=== PATIENT | male | born 1960 | race Caucasian/White ===

== ENCOUNTER 2022-09-06 08:14 | Emergency (ER) | payer OTHER ==
[2022-09-06] MEDS ORDERED: Nitroglycerin 0.4 MG Tab.SL SL ONE (08:47)
[2022-09-06 08:52] LABS: PTT,PARTIAL THROMBOPLSTIN TIME 24.6 SEC (22.0-34.0)
[2022-09-06 08:56] LABS: ANION GAP 12.3 mEq/L (7-13); CHLORIDE,CL 104 mmol/L (98-107); SODIUM,NA 140 mmol/L (136-145)
[2022-09-06 08:57] VITALS: BP 133/103; PULSE 60
[2022-09-06 08:59] LABS: ESTIMATED GFR 86 mL/min (>=60)
[2022-09-06 09:15] LABS: CORONAVIRUS COVID-19 NAA NEGATIVE (NEGATIVE); RESPIRATORY SYNCYTIAL VIR NAA NEGATIVE (NEGATIVE)
== END 2022-09-06 12:53 | disposition home or self-care (01) ==
LOC: DL.ED 08:14
DX: R07.9 Chest pain, unspecified (principal); D53.9 Nutritional anemia, unspecified; F17.210 Nicotine dependence, cigarettes, uncomplicated; I10 Essential (primary) hypertension; K21.9 Gastro-esophageal reflux disease without esophagitis; M19.90 Unspecified osteoarthritis, unspecified site; E03.9 Hypothyroidism, unspecified; Z79.82 Long term (current) use of aspirin; Z79.899 Other long term (current) drug therapy; Z88.8 Allergy status to other drugs, medicaments and biological substances; Z88.5 Allergy status to narcotic agent; Z20.822 Contact with and (suspected) exposure to COVID-19
CPT/HCPCS: 0241U; 36415; 71045; 80053; 82150; 83605; 83690; 83880; 84484; 85025; 85610; 85730; 86140; 93005; 93010; 99284; 99285; A9270-GY

== ENCOUNTER 2024-09-22 23:32 | Emergency (ER) | payer MEDICARE ==
[2024-09-22] MEDS: Iopamidol 612 MG/ML 100 ML Bottle IVPUSH ONE (23:24)
[2024-09-23 00:19] LABS: BASOPHILS PERCENT AUTO 0.1 % (0.0-1.0); EOSINOPHILS PERCENT AUTO 0.2 % (1.0-3.0); HEMATOCRIT 40.3 % (40.0-54.0); HEMOGLOBIN 14.1 g/dL (14.0-18.0); LYMPHOCYTES PERCENT AUTO 10.6 % (20.5-50.1); MEAN CORPUSCULAR HEMOGLOBIN 36.2 pg (27.0-34.0); MEAN CORPUSCULAR VOLUME 103.6 fL (80-100); MONOCYTES PERCENT AUTO 10.1 % (2-8); PLATELET COUNT,PLT 94 10^3/uL (150-450); RED BLOOD CELL COUNT 3.89 10^6/uL (4.6-6.2); WHITE BLOOD CELL COUNT,WBC 8.7 10^3/uL (5.0-10.0)
[2024-09-23] MEDS: Famotidine 20 MG/2 ML SDV IVPUSH ONE (00:28)
[2024-09-23] MEDS: Sodium Chloride 0.9% 1,000 ML IV ONE (00:28)
[2024-09-23 00:42] LABS: ALANINE AMINOTRANSFERASE,ALT 22 U/L (16-63); ALBUMIN 3.1 g/dL (3.4-5.0); ALKALINE PHOSPHATASE 80 U/L (46-116); ANION GAP 9.5 mEq/L (7-13); ASPARTATE AMNIOTRANSFERASE,AST 25 U/L (15-37); BILIRUBIN TOTAL 0.5 mg/dL (0.2-1.0); BLOOD UREA NITROGEN,BUN 25 mg/dL (7-18); BUN/CREATININE RATIO 19.7 (No establ ref range); CALCIUM 8.8 mg/dL (8.5-10.1); CARBON DIOXIDE,CO2 27 mmol/L (21-32); CHLORIDE,CL 106 mmol/L (98-107); CREATININE 1.27 mg/dL (0.70-1.30); GLUCOSE RANDOM 103 mg/dL (70-99); LIPASE 16 U/L (16-77); MAGNESIUM 1.7 mg/dL (1.8-2.4); POTASSIUM,K 4.5 mmol/L (3.5-5.1); SODIUM,NA 138 mmol/L (136-145)
[2024-09-23 00:46] LABS: A/G RATIO 0.79; ESTIMATED GFR 63 mL/min (>=60); ETHANOL BLOOD MEDICAL < 3 mg/dL (0)
[2024-09-23] MEDS: methylPREDNISolone Sodium Succinate 125 MG/2 ML SDV IVPUSH ONE (00:48)
[2024-09-23 00:52] LABS: B-TYPE NATRIURETIC PEPTIDE,BNP 17 pg/ml (0-100)
[2024-09-23] MEDS: Magnesium Sulf/Wat 2 GM/50 mL 2 GM in Premix Bag 1 BAG IV ONE (01:18)
[2024-09-23] MEDS: Albuterol/Ipratropium 3.0-0.5 MG/3 ML Neb Soln NEB ONE (01:25)
[2024-09-23 02:43] LABS: BASE EXCESS ARTERIAL -2 mmol/L ((-2)-(+3)); BICARBONATE,ARTERIAL 22.6 mmol/L (22-26); O2 DELIVERY DEVICE NASAL CANNULA; O2 SATURATION ARTERIAL 94 % (95-100); PCO2 ARTERIAL 42 mmHg (35-45); PH,ARTERIAL 7.35 (7.35-7.45); PO2 ARTERIAL 84 mmHg (70-100)
[2024-09-23 02:44] LABS: ALLEN TEST PERFORMED
[2024-09-23] MEDS ORDERED: Sodium Chloride 0.9% 500 ML IV SCH (03:30)
[2024-09-23 04:19] LABS: APPEARANCE,URINE CLEAR (CLEAR); BILIRUBIN,URINE NEGATIVE (NEGATIVE); COLOR,URINE YELLOW (YELLOW); GLUCOSE,URINE NEGATIVE (NEGATIVE); KETONES,URINE NEGATIVE (NEGATIVE); LEUKOCYTE ESTERASE,URINE NEGATIVE (NEGATIVE); NITRITE,URINE NEGATIVE (NEGATIVE); OCCULT BLOOD,URINE SMALL (NEGATIVE); PH,URINE 5.5 (5.0-9.0); PROTEIN,URINE NEGATIVE (NEGATIVE); UROBILINOGEN,URINE 0.2 mg/dL (0.2-1.0)
[2024-09-23 04:30] LABS: BACTERIA,URINE FEW /HPF (0-FEW/HPF); EPITHELIAL CELLS,URINE RARE /HPF (NOT SEEN); MUCUS,URINE FEW /LPF (NOT SEEN); RBC,URINE 20-30 /HPF (0-5); WBC,URINE 0-5 /HPF (0-5/HPF)
[2024-09-23 08:16] VITALS: BP 109/82; PULSE 60
== END 2024-09-23 08:52 ==
LOC: DL.ED 23:32
DX: A08.4 Viral intestinal infection, unspecified (principal); E86.0 Dehydration; E83.42 Hypomagnesemia; J44.1 Chronic obstructive pulmonary disease with (acute) exacerbation; I10 Essential (primary) hypertension; K21.9 Gastro-esophageal reflux disease without esophagitis; E03.9 Hypothyroidism, unspecified; Z86.16 Personal history of COVID-19; F17.210 Nicotine dependence, cigarettes, uncomplicated; Z88.5 Allergy status to narcotic agent; Z88.8 Allergy status to other drugs, medicaments and biological substances; Z79.82 Long term (current) use of aspirin; Z79.51 Long term (current) use of inhaled steroids; Z79.890 Hormone replacement therapy; Z79.899 Other long term (current) drug therapy
CPT/HCPCS: 36600; 71045; 74177; 80053; 80307; 81001; 82803; 82947; 83690; 83735; 83880; 84484; 85025; 87428; 93005; 94640; 96361; 96365; 96375; 99285; A9270; J2919; J3475; J7030; Q9967; 93010; 99284